=== PATIENT | female | born 1995 | race Caucasian/White ===

== ENCOUNTER → 2017-10-22 | Outpatient (CLI) | payer OTHER | END | disposition home or self-care (01) | LOC: LABWHC1 13:11 | PROVIDERS: ATTEND Obstetrics & Gynecology | DX: Z34.90 Encounter for supervision of normal pregnancy, unspecified, unspecified trimester (principal) | CPT/HCPCS: 36415; 84702 ==

== ENCOUNTER → 2017-11-02 | Outpatient (CLI) | payer OTHER ==
--- NOTE | 2017-11-02 15:28 | US ---
EXAMINATION TYPE: US pelvic complete DATE OF EXAM: 11/02/2017 COMPARISON: NONE CLINICAL HISTORY: N91.2 Amenorrhea, IUD in place Z97.5. IUD placed 2 years ago. No pain. No periods . TECHNIQUE: Transabdominal (TA) Date of LMP: Unknown due to IUD, EXAM MEASUREMENTS: Uterus: 10.5 x 4.5 x 3.5 cm Endometrial Stripe: 0.4 cm Right Ovary: 3.5 x 2.1 x 1.8 cm Left Ovary: 3.2 x 2.0 x 1.9 cm 1. Uterus: Anteverted wnl 2. Endometrium: IUD seen in endometrial canal 3. Right Ovary: follicles seen 4. Left Ovary: follicles seen 5. Bilateral Adnexa: wnl 6. Posterior cul-de-sac: no free fluid Cervix- wnl IMPRESSION: No significant finding is seen to account for patient's symptoms. Central IUD felt satisf actory in position.
== END | disposition home or self-care (01) ==
LOC: RADUSWWP 14:35
PROVIDERS: ATTEND Obstetrics & Gynecology
DX: N91.2 Amenorrhea, unspecified (principal); Z97.5 Presence of (intrauterine) contraceptive device
CPT/HCPCS: 76856

== ENCOUNTER 2018-06-22 22:02 | Observation (INO) | payer OTHER ==
[2018-06-22] MEDS ORDERED: ONDANSETRON 4 MG/2 ML VIAL IVP STA (23:19)
[2018-06-22] MEDS ORDERED: MORPHINE SULFATE 4 MG/ML SYRINGE IVP STA (23:19)
--- NOTE | 2018-06-22 23:39 | ED ---
Skin/Abscess/FB HPI <Joaquim Mota - Last Filed: 06/23/18 04:17> - General Source: patient Mode of arrival: ambulatory Limitations: no limitations <Sonia Wagner - Last Filed: 06/23/18 05:02> - General Chief complaint: Skin/Abscess/Foreign Body Stated complaint: tailbone pain Time Seen by Provider: 06/22/18 23:10 - History of Present Illness Initial comments: 22-year-old female patient presents to the emergency department today for evaluation of pain and drainage from her tailbone region. Patient states that she had a fall on Wednesday injuring her coccyx. The patient states that she did have x-ray imaging which showed a fracture. Patient states over the next couple days she developed swelling to the area and did call her physician reporting this. He informed her that this was normal and gave her prescription for naproxen for inflammation. Patient states that today the area broke open and drained a large amount of odorous sick fluid. Patient states that she is having significant amount of pain to the area. She states that she does feel chilled and feverish. She denies any nausea or vomiting. Denies any history of similar symptoms. Patient denies any recent rash, shortness breath, chest pain, abdominal pain, nausea, vomiting, diarrhea, constipation, back pain, numbness, tingling, dizziness, weakness, hematuria, dysuria, urinary urgency, urinary frequency, headache, visual changes, or any other complaints. (Sonia Wagner) - Related Data Home Medications Medication Instructions Recorded Confirmed Ibuprofen 600 mg PO Q4H PRN 06/22/18 06/22/18 Multivitamins, Thera [Multivitamin 1 tab PO DAILY 06/22/18 06/22/18 (formulary)] Naproxen 500 mg PO Q4H PRN 06/22/18 06/22/18 Allergies Allergy/AdvReac Type Severity Reaction Status Date / Time No Known Allergies Allergy Verified 06/22/18 23:05 Review of Systems ROS Other: All systems not noted in ROS Statement are negative. <Joaquim Mota - Last Filed: 06/23/18 04:17> ROS Other: All systems not noted in ROS Statement are negative. <Sonia Wagner - Last Filed: 06/23/18 05:02> ROS Statement: Those systems with pertinent positive or pertinent negative responses have been documented in the HPI. Past Medical History Past Medical History: No Reported History History of Any Multi-Drug Resistant Organisms: None Reported Past Surgical History: No Surgical Hx Reported Past Psychological History: Anxiety, Depression Smoking Status: Never smoker Past Alcohol Use History: Occasional Past Drug Use History: None Reported <Sonia Wagner - Last Filed: 06/23/18 05:02> General Exam Limitations: no limitations General appearance: alert, in no apparent distress, other (Physical well- developed, well-nourished adult female patient in mild distress related to pain. Vital signs upon presentation are temperature 99.2F, pulse 125, respirations 18, blood pressure 146/87, pulse ox 98% on room air.) Eye exam: Present: normal appearance, PERRL, EOMI. Absent: scleral icterus, conjunctival injection, periorbital swelling ENT exam: Present: normal exam, normal oropharynx, mucous membranes moist Respiratory exam: Present: normal lung sounds bilaterally. Absent: respiratory distress, wheezes, rales, rhonchi, stridor Cardiovascular Exam: Present: regular rate, normal rhythm, normal heart sounds. Absent: systolic murmur, diastolic murmur, rubs, gallop, clicks GI/Abdominal exam: Present: soft, normal bowel sounds. Absent: distended, tenderness, guarding, rebound, rigid Neurological exam: Present: alert, oriented X3, CN II-XII intact Psychiatric exam: Present: normal affect, normal mood Skin exam: Present: warm, dry, intact, normal color, other (Patient has large pilonidal abscess with large amount of purulent odorous drainage. Tenderness to the area. Surrounding erythema. ). Absent: rash <Sonia Wagner - Last Filed: 06/23/18 05:02> Vital Signs 06/22/18 06/23/18 06/23/18 22:30 02:24 04:44 Temperature 99.2 F 100.7 F H 99.2 F Pulse Rate 125 H 103 H 97 Respiratory 18 18 18 Rate Blood Pressure 146/87 155/80 131/61 O2 Sat by Pulse 98 98 99 Oximetry Medical Decision Making - Lab Data Result diagrams: 06/22/18 23:40 06/22/18 23:40 <Joaquim Mota - Last Filed: 06/23/18 04:17> - Lab Data Result diagrams: 06/22/18 23:40 06/22/18 23:40 <Sonia Wagner - Last Filed: 06/23/18 05:02> - Medical Decision Making I saw this patient in conjunction with the physician assistant basketball coach. I performed independent history and physical exam. Agree with case management. I discussed case with Dr. Nazario who will admit the patient (Joaquim Mota) 22-year-old female patient presented to the emergency department today for evaluation of pain and drainage from her coccyx region. Physical examination did reveal a large pilonidal abscess currently draining odorous purulent drainage. Patient labs were obtained and showed elevated white blood cell count of 14.5. Patient did have elevated temperature here in the department. She is on clindamycin. My attending Dr. Mota did speak to the surgeon process control technician Dr. Nazario who accepts admission. Patient be nothing by mouth midnight. (Sonia Wagner) - Lab Data Lab Results 06/22/18 06/22/18 06/22/18 Range/Units 23:40 23:40 23:40 WBC 14.3 H (3.8-10.6) k/uL RBC 4.57 (3.80-5.40) m/uL Hgb 12.9 (11.4-16.0) gm/dL Hct 38.4 (34.0-46.0) % MCV 84.0 (80.0-100.0) fL MCH 28.3 (25.0-35.0) pg MCHC 33.7 (31.0-37.0) g/dL RDW 12.0 (11.5-15.5) % Plt Count 476 H (150-450) k/uL Neutrophils % 74 % Lymphocytes % 17 % Monocytes % 6 % Eosinophils % 1 % Basophils % 1 % Neutrophils # 10.6 H (1.3-7.7) k/uL Lymphocytes # 2.4 (1.0-4.8) k/uL Monocytes # 0.9 (0-1.0) k/uL Eosinophils # 0.1 (0-0.7) k/uL Basophils # 0.1 (0-0.2) k/uL Sodium 140 (137-145) mmol/L Potassium 4.0 (3.5-5.1) mmol/L Chloride 104 (98-107) mmol/L Carbon Dioxide 25 (22-30) mmol/L Anion Gap 11 mmol/L BUN 14 (7-17) mg/dL Creatinine 0.80 (0.52-1.04) mg/dL Est GFR (CKD-EPI)AfAm >90 (>60 ml/min/1.73 sqM) Est GFR (CKD-EPI)NonAf >90 (>60 ml/min/1.73 sqM) Glucose 112 H (74-99) mg/dL Plasma Lactic Acid Gary 1.7 (0.7-2.0) mmol/L Calcium 9.0 (8.4-10.2) mg/dL Total Bilirubin 0.3 (0.2-1.3) mg/dL AST 22 (14-36) U/L ALT 20 (9-52) U/L Alkaline Phosphatase 101 (38-126) U/L Total Protein 7.7 (6.3-8.2) g/dL Albumin 3.6 (3.5-5.0) g/dL Disposition <Joaquim Mota - Last Filed: 06/23/18 04:17> Decision to Admit Reason: Admit from EC Decision Date: 06/23/18 Decision Time: 05:02 <Sonia Wagner - Last Filed: 06/23/18 05:02> Clinical Impression: Pilonidal abscess Disposition: ADMITTED IP TO THIS [facility] Condition: Fair
[2018-06-23 00:17] LABS: Basophils # (A) 0.1 k/uL (0-0.2); Basophils % (A) 1 %; Eosinophils # (A) 0.1 k/uL (0-0.7); Eosinophils % (A) 1 %; HCT 38.4 % (34.0-46.0); HGB 12.9 gm/dL (11.4-16.0); Lymphocytes # (A) 2.4 k/uL (1.0-4.8); Lymphocytes % (A) 17 %; MCH 28.3 pg (25.0-35.0); MCHC 33.7 g/dL (31.0-37.0); Mean Platelet Volume 6.7; Monocytes # (A) 0.9 k/uL (0-1.0); Monocytes % (A) 6 %; Neutrophils # (A) 10.6 k/uL (1.3-7.7); Neutrophils % (A) 74 %; Platelet Count 476 k/uL (150-450); RBC 4.57 m/uL (3.80-5.40); WBC 14.3 k/uL (3.8-10.6)
[2018-06-23 00:37] LABS: ALT 20 U/L (9-52); AST 22 U/L (14-36); Albumin 3.6 g/dL (3.5-5.0); Alkaline Phosphatase 101 U/L (38-126); Anion Gap 11 mmol/L; Blood Urea Nitrogen 14 mg/dL (7-17); Carbon Dioxide 25 mmol/L (22-30); Chloride 104 mmol/L (98-107); Glucose 112 mg/dL (74-99); Sodium 140 mmol/L (137-145); Total Bilirubin 0.3 mg/dL (0.2-1.3); Total Protein 7.7 g/dL (6.3-8.2)
[2018-06-23] MEDS ORDERED: CLINDAMYCIN 600 MG in DEXTROSE 5% IN WATER 50 ML IVPB STA ×2 (02:56)
[2018-06-23] MEDS ORDERED: ACETAMINOPHEN TAB 325 MG TAB PO PRN (04:13)
[2018-06-23] MEDS ORDERED: NALOXONE 0.4 MG/ML 1 ML VIAL IV PRN (04:13)
[2018-06-23] MEDS: SODIUM CHLORIDE 0.9% 1,000 ML IV SCH ×4 (04:47→20:43)
[2018-06-23 05:36] VITALS: BMI 51.1
[2018-06-23] MEDS ORDERED: VANCOMYCIN IV PER PHARMACY 1 EACH MISC MISCELLANE PRN (06:42)
[2018-06-23] MEDS: MORPHINE SULFATE 4 MG/ML SYRINGE IV PRN ×4 (07:02→22:07)
[2018-06-23] MEDS: ONDANSETRON 4 MG/2 ML VIAL IVP PRN ×2 (07:06→15:48)
[2018-06-23] MEDS ORDERED: VANCOMYCIN 2,500 MG in SODIUM CHLORIDE 0.9% 500 ML 500 ML IVPB ONE (08:00)
[2018-06-23] MEDS ORDERED: CLINDAMYCIN 300 MG in DEXTROSE 5% IN WATER 50 ML IVPB SCH ×2 (08:00)
--- NOTE | 2018-06-23 10:24 | CT ---
EXAMINATION TYPE: CT pelvis w con DATE OF EXAM: 06/23/2018 COMPARISON: None HISTORY: pilonidal cyst CT DLP: 2835.3 mGycm Automated exposure control for dose reduction was used. TECHNIQUE: Helical acquisition of images from the lung bases through the pelvis have been completed. CONTRAST: Performed without Oral Contrast and with IV Contrast, patient injected with 100 mL of Isovue 300. FINDINGS: Within the subcutaneous fat at the level just superficial to the distal sacrum and coccyx t here is lucency within the soft tissues with associated soft tissue density compatible with local inf lammatory change, possible gas forming organisms and phlegmon measuring approximately 2.5 x 4.7 by 6 cm as it extends from the level of the distal sacrum and coccyx to the skin surface. LUNG BASES: No significant abnormality is appreciated. AORTA: No significant abnormality is appreciated. LIVER/GB: No significant abnormality is appreciated. PANCREAS: No significant abnormality is seen. SPLEEN: No significant abnormality is seen. ADRENALS: No significant abnormality is seen. KIDNEYS: Poorly defined low dense area within the right kidney measures approximately 2.4 cm at the u pper pole posteriorly, correlate for possible pyelonephritis.. REPRODUCTIVE ORGANS: Intrauterine contraceptive device is in place. BOWEL: No significant abnormality is seen. FREE AIR: No Free Air visible. ASCITES: None visible. PELVIC ADENOPATHY: None visualized. RETROPERITONEAL ADENOPATHY: No Retroperitoneal Adenopathy visible. URINARY BLADDER: No significant abnormality is seen. OSSEOUS STRUCTURES: No significant abnormality is seen. No periosteal reaction to suggest osteomyeli tis. IMPRESSION: FINDINGS COMPATIBLE WITH SOFT TISSUE ABSCESS SUPERFICIAL TO THE DISTAL SACRUM AND COCCYX DESCRIBED , NO SIGNIFICANT FLUID NOTED, CONSIDER SURGICAL CONSULT, INCISION AND DRAINAGE. Abnormality in the ri ght kidney as described, correlate to exclude infection, pyelonephritis.
--- NOTE | 2018-06-23 10:52 | P.GSHP ---
<My Prater - Last Filed: 06/23/18 13:51> History of Present Illness H&P Date: 06/23/18 Chief Complaint: Pain coccyx. Pleasant 22-year-old female presented on the day of admission to the emergency room to be evaluated for pain in the coccyx area with a large amount of odorous serous fluid. Patient reports that she had fallen on Wednesday landed on her coccyx. Had pain and did have an x-ray done according to the patient she was told there was a fracture. Patient stated several days after the incident noted that there was increased pain to the coccyx area. She stated that the area actually opened up noted that she was experiencing a large amount of odorous serous fluid from the area. Was very painful to even touch the area. Patient stated that she felt feverish and chilled. Nausea sensation did not actually vomit. Denied any change in bowel habits. States urinating without difficulty. States the pain to touch to the area is unbearable. No past surgical history. Patient did have a computed tomography scan of the pelvis with contrast on June 23 reviewing the report the subcutaneous fat at the level to superior to the distal sacral and coccyx area large inflammatory changes possible gas-forming organisms approximately 2.5 x 4 x 7 by 6 abscess extends from the distal sacral coccyx to the skin surface the findings are compatible with soft tissue abscess superficial to the distal sacrum and coccyx white count on admission 14.3 electrolytes within normal limits in the emergency room temp was 100.7 patient was tachycardic Patient has a large tender swollen pilonidal abscess, currently large amount very odorous drainage noted significant tenderness to the area with surrounding erythema difficult to do an adequate exam patient states it's so sore to touch - Review of Systems Comment: Essentially unremarkable except as mentioned in the present illness Past Medical History Past Medical History: No Reported History History of Any Multi-Drug Resistant Organisms: None Reported Past Surgical History: No Surgical Hx Reported Past Psychological History: Anxiety, Depression Smoking Status: Never smoker Past Alcohol Use History: Occasional Past Drug Use History: None Reported - Past Family History Mother Family Medical History: No Reported History Father Family Medical History: Hypertension Medications and Allergies Home Medications Medication Instructions Recorded Confirmed Type Ibuprofen 600 mg PO Q4H PRN 06/22/18 06/22/18 History Multivitamins, Thera [Multivitamin 1 tab PO DAILY 06/22/18 06/22/18 History (formulary)] Naproxen 500 mg PO Q4H PRN 06/22/18 06/22/18 History Allergies Allergy/AdvReac Type Severity Reaction Status Date / Time No Known Allergies Allergy Verified 06/22/18 23:05 Surgical - Exam Vital Signs Temp Pulse Resp BP Pulse Ox 99.2 F 125 H 18 146/87 98 06/22/18 22:30 06/22/18 22:30 06/22/18 22:30 06/22/18 22:30 06/22/18 22:30 GENERAL APPEARANCE: 22-year-old female patient is alert, reports having significant tenderness to the sacrum and coccyx area VITAL SIGNS: Reviewed HEENT: Head is normocephalic and atraumatic. Pupils are equal and reactive. The nares are patent. Oropharynx is clear without lesions. NECK: Supple without lymphadenopathy. Traches midline. HEART: S1, S2. Regular rate and rhythm. No murmur noted denying chest pain LUNGS: No crackles or wheezes are heard. Good air movement bilaterally ABDOMEN: Soft, nontender, nondistended with good bowel sounds. No peritoneal signs. No palpable organomegaly or masses. EXTREMITIES: Normal skin color and turgor. No cyanosis, rash, ulceration, clubbing or edema. Radial pedal pulses are 2/4 bilaterally. NEUROLOGICAL: No focal deficits. Strength and sensation are grossly intact. Skin no skin rash noted. There is a large pilonidal abscess with a large amount odorous drainage extremely tender to the touch currently copious amount of yellowish creamy drainage extremely tender very swollen with redness noted Results - Labs 06/22/18 23:40 06/22/18 23:40 Abnormal Lab Results - Last 24 Hours (Table) 06/22/18 06/22/18 Range/Units 23:40 23:40 WBC 14.3 H (3.8-10.6) k/uL Plt Count 476 H (150-450) k/uL Neutrophils # 10.6 H (1.3-7.7) k/uL Glucose 112 H (74-99) mg/dL Diabetes panel 06/22/18 Range/Units 23:40 Sodium 140 (137-145) mmol/L Potassium 4.0 (3.5-5.1) mmol/L Chloride 104 (98-107) mmol/L Carbon Dioxide 25 (22-30) mmol/L BUN 14 (7-17) mg/dL Creatinine 0.80 (0.52-1.04) mg/dL Glucose 112 H (74-99) mg/dL Calcium 9.0 (8.4-10.2) mg/dL AST 22 (14-36) U/L ALT 20 (9-52) U/L Alkaline Phosphatase 101 (38-126) U/L Total Protein 7.7 (6.3-8.2) g/dL Albumin 3.6 (3.5-5.0) g/dL Calcium panel 06/22/18 Range/Units 23:40 Calcium 9.0 (8.4-10.2) mg/dL Albumin 3.6 (3.5-5.0) g/dL Pituitary panel 06/22/18 Range/Units 23:40 Sodium 140 (137-145) mmol/L Potassium 4.0 (3.5-5.1) mmol/L Chloride 104 (98-107) mmol/L Carbon Dioxide 25 (22-30) mmol/L BUN 14 (7-17) mg/dL Creatinine 0.80 (0.52-1.04) mg/dL Glucose 112 H (74-99) mg/dL Calcium 9.0 (8.4-10.2) mg/dL Adrenal panel 06/22/18 Range/Units 23:40 Sodium 140 (137-145) mmol/L Potassium 4.0 (3.5-5.1) mmol/L Chloride 104 (98-107) mmol/L Carbon Dioxide 25 (22-30) mmol/L BUN 14 (7-17) mg/dL Creatinine 0.80 (0.52-1.04) mg/dL Glucose 112 H (74-99) mg/dL Calcium 9.0 (8.4-10.2) mg/dL Total Bilirubin 0.3 (0.2-1.3) mg/dL AST 22 (14-36) U/L ALT 20 (9-52) U/L Alkaline Phosphatase 101 (38-126) U/L Total Protein 7.7 (6.3-8.2) g/dL Albumin 3.6 (3.5-5.0) g/dL Assessment and Plan Assessment: Impression A recent fall with pain to the coccyx area Present on admission a large pilonidal abscess draining odorous. Drainage Present on admission leukocytosis, febrile, tachycardic sepsis suspect due to large pilonidal abscess computed tomography scan of the pelvis on the june report reviewed findings compatible with soft tissue abscess superficial to the distal sacrum and coccyx Plan incision and drainage of pilonidal cyst scheduled for tomorrow IV antibiotics clindamycin and vancomycin as ordered Pain control DVT and GI prophylaxis IV fluid for hydration Further recommendations pending Repeat labs in the morning Nothing by mouth after midnight Resume diet The above impression and plan of care have been discussed and directed by signing physician. My Prater nurse practitioner acting as scribe for signing physician. <Donna Nazario - Last Filed: 06/23/18 17:03> Surgical - Exam Vital Signs Temp Pulse Resp BP Pulse Ox 99.2 F 125 H 18 146/87 98 06/22/18 22:30 06/22/18 22:30 06/22/18 22:30 06/22/18 22:30 06/22/18 22:30 Results - Labs 06/22/18 23:40 06/22/18 23:40 Abnormal Lab Results - Last 24 Hours (Table) 06/22/18 06/22/18 Range/Units 23:40 23:40 WBC 14.3 H (3.8-10.6) k/uL Plt Count 476 H (150-450) k/uL Neutrophils # 10.6 H (1.3-7.7) k/uL Glucose 112 H (74-99) mg/dL Microbiology - Last 24 Hours (Table) 06/22/18 23:45 Gram Stain - Preliminary Buttock Wound Culture - Preliminary Diabetes panel 06/22/18 Range/Units 23:40 Sodium 140 (137-145) mmol/L Potassium 4.0 (3.5-5.1) mmol/L Chloride 104 (98-107) mmol/L Carbon Dioxide 25 (22-30) mmol/L BUN 14 (7-17) mg/dL Creatinine 0.80 (0.52-1.04) mg/dL Glucose 112 H (74-99) mg/dL Calcium 9.0 (8.4-10.2) mg/dL AST 22 (14-36) U/L ALT 20 (9-52) U/L Alkaline Phosphatase 101 (38-126) U/L Total Protein 7.7 (6.3-8.2) g/dL Albumin 3.6 (3.5-5.0) g/dL Calcium panel 06/22/18 Range/Units 23:40 Calcium 9.0 (8.4-10.2) mg/dL Albumin 3.6 (3.5-5.0) g/dL Pituitary panel 06/22/18 Range/Units 23:40 Sodium 140 (137-145) mmol/L Potassium 4.0 (3.5-5.1) mmol/L Chloride 104 (98-107) mmol/L Carbon Dioxide 25 (22-30) mmol/L BUN 14 (7-17) mg/dL Creatinine 0.80 (0.52-1.04) mg/dL Glucose 112 H (74-99) mg/dL Calcium 9.0 (8.4-10.2) mg/dL Adrenal panel 06/22/18 Range/Units 23:40 Sodium 140 (137-145) mmol/L Potassium 4.0 (3.5-5.1) mmol/L Chloride 104 (98-107) mmol/L Carbon Dioxide 25 (22-30) mmol/L BUN 14 (7-17) mg/dL Creatinine 0.80 (0.52-1.04) mg/dL Glucose 112 H (74-99) mg/dL Calcium 9.0 (8.4-10.2) mg/dL Total Bilirubin 0.3 (0.2-1.3) mg/dL AST 22 (14-36) U/L ALT 20 (9-52) U/L Alkaline Phosphatase 101 (38-126) U/L Total Protein 7.7 (6.3-8.2) g/dL Albumin 3.6 (3.5-5.0) g/dL
[2018-06-23] MEDS: CLINDAMYCIN 600 MG in DEXTROSE 5% IN WATER 50 ML IVPB SCH ×4 (13:32→22:08)
[2018-06-23] MEDS: VANCOMYCIN 2,000 MG in SODIUM CHLORIDE 0.9% 500 ML 500 ML IVPB SCH (20:43)
[2018-06-24] MEDS: MORPHINE SULFATE 4 MG/ML SYRINGE IV PRN ×4 (02:25→23:08)
[2018-06-24] MEDS: ONDANSETRON 4 MG/2 ML VIAL IVP PRN ×2 (02:28→18:48)
[2018-06-24] MEDS: CLINDAMYCIN 600 MG in DEXTROSE 5% IN WATER 50 ML IVPB SCH ×6 (03:58→23:09)
[2018-06-24] MEDS: VANCOMYCIN 2,000 MG in SODIUM CHLORIDE 0.9% 500 ML 500 ML IVPB SCH ×2 (06:11→22:12)
[2018-06-24] MEDS: SODIUM CHLORIDE 0.9% 1,000 ML IV SCH ×3 (06:16→22:14)
--- NOTE | 2018-06-24 08:34 | P.PN ---
Progress Note - Text Progress Note Date: 06/24/18 Incision and drainage delayed due to limited OR availability. Case deferred for tomorrow.
[2018-06-24] MEDS ORDERED: IV FLUID CONTINUATION 700 ML IV ONE (17:14)
[2018-06-24] MEDS ORDERED: MIDAZOLAM 2 MG/2 ML VIAL IV ONE (18:48)
[2018-06-24] MEDS ORDERED: PROPOFOL 10 MG/ML 20 ML VIAL IV ONE (18:51)
[2018-06-24] MEDS ORDERED: SUCCINYLCHOLINE CHLORIDE VIAL 200 MG/10 ML VIAL IV ONE (18:51)
[2018-06-24] MEDS ORDERED: MIDAZOLAM 2 MG/2 ML VIAL ONE (18:51)
[2018-06-24] MEDS ORDERED: fentaNYL (PF) 50 MCG/ML 2 ML AMP ONE (18:51)
[2018-06-24] MEDS ORDERED: LIDOCAINE 1% INJ 10MG/ML (20 ML MDV) ONE (18:51)
[2018-06-24] MEDS ORDERED: HYDROmorphone (PF) 1 MG/ML ONE (18:51)
[2018-06-24] MEDS ORDERED: BUPIVACAIN-EPI 0.25%-1:200,000 30 ML VIAL SQ ONE (19:14)
[2018-06-24] MEDS ORDERED: MEPERIDINE 50 MG/ML SYRINGE IVP ONE ×2 (19:48→20:01)
[2018-06-24] MEDS ORDERED: HYDROmorphone 1 MG/ML 1 ML SYRINGE IVP ONE ×2 (20:16→20:25)
--- NOTE | 2018-06-24 20:29 | P.OP ---
Date of Procedure: 06/24/18 Description of Procedure: SURGEON: CHANEL DOS SANTOS MD SAMPLER TESTER: NONE. PREOPERATIVE DIAGNOSES: 1. Pilonidal abscess with sepsis 2. Morbid obesity due to excess calories, BMI 51.2 3. Generalized anxiety disorder 4. Depressive disorder 5. History of status post fall onto coccyx with fracture, sequelae POSTOPERATIVE DIAGNOSES: 1. Necrotizing pilonidal abscess with sepsis 2. Morbid obesity due to excess calories, BMI 51.2 3. Generalized anxiety disorder 4. Depressive disorder 5. History of status post fall onto coccyx with fracture, sequelae OPERATION: 1. Sharp excisional debridement with scissor of 6 x 4 x 4 cm coccygeal wound to muscle 2. Water pulse lavage debridement of coccygeal wound 6 x 4 x 4 cm to muscle and bone. ANESTHESIA: General with local ESTIMATED BLOOD LOSS: 30 mL. COMPLICATIONS: None. SPECIMENS: Tissue culture INDICATIONS: The patient is a 22-year-old female who reports a history of fall onto her coccyx. She then had a secondary infection which had developed into a severe swelling and moderate drainage. She presented septic to the emergency room with high fevers, high white count including tachycardia. CT demonstrated a complicated pilonidal cyst and abscess. Given the clinical findings, surgical debridement was described. Informed consent was obtained. DESCRIPTION: Patient was brought to the operating room, initially placed supine. After general induction, she was repositioned in the prone position. The patient was also on schedule antibiotics. The buttocks and sacrococcygeal area were prepped and draped in a standard sterile fashion using Betadine. After a timeout protocol, attention was brought to the depth of the wound whereby moderate necrosis with brown to yellow tissue exudate and slough was found along the surface of the coccygeal wound. The wound was measured to a depth of 4 cm with dimension of 6 x 4 cm with undermining and skin bridge along the midline. Using a sharp excisional debridement with a Metzenbaum scissors, the tissue was excised to healthy bleeding tissue to the the muscle. At the coccyx, the bone was not exposed. Next using a combination of Metzenbaum scissor, the periphery of the wound was also cleared of any fibrinous deposits. Bleeding was checked with electro Bovie cautery. One liter of water jet pulse lavage was performed along the wound for mechanically debridement followed by a 4 x 4 sponge. All yellow exudate was addressed. Using a moist Kerlix roll, the wound was packed. An ABD x 3 were placed along the wound. Six-inch micropore tape was placed to secure the dressing. She was awoken and taken to the postanesthesia care unit in stable condition. FINDINGS: 1. An 6 x 4 x 4 cm sacrococcygeal complicated pilonidal abscess
[2018-06-24] MEDS ORDERED: KETOROLAC 30 MG/ML 1 ML VIAL IVP ONE (20:31)
[2018-06-24] MEDS: FAMOTIDINE 20 MG TAB PO SCH (23:09)
[2018-06-25] MEDS: KETOROLAC 30 MG/ML 1 ML VIAL IVP SCH ×5 (00:38→18:22)
[2018-06-25] MEDS: MORPHINE SULFATE 4 MG/ML SYRINGE IV PRN ×4 (05:38→20:33)
[2018-06-25 07:42] LABS: Basophils % (A) 1 %; Eosinophils # (A) 0.4 k/uL (0-0.7); Eosinophils % (A) 5 %; HCT 37.1 % (34.0-46.0); HGB 11.8 gm/dL (11.4-16.0); Lymphocytes % (A) 28 %; MCH 27.2 pg (25.0-35.0); MCHC 31.9 g/dL (31.0-37.0); MCV 85.3 fL (80.0-100.0); Mean Platelet Volume 6.4; Monocytes # (A) 0.4 k/uL (0-1.0); Monocytes % (A) 6 %; Neutrophils # (A) 4.1 k/uL (1.3-7.7); Neutrophils % (A) 59 %; Platelet Count 451 k/uL (150-450); RBC 4.35 m/uL (3.80-5.40); RDW 11.9 % (11.5-15.5)
[2018-06-25 07:59] LABS: Anion Gap 7 mmol/L; Blood Urea Nitrogen 8 mg/dL (7-17); Calcium 8.2 mg/dL (8.4-10.2); Carbon Dioxide 28 mmol/L (22-30); Chloride 106 mmol/L (98-107); Glucose 91 mg/dL (74-99); Potassium 4.6 mmol/L (3.5-5.1); Sodium 141 mmol/L (137-145)
[2018-06-25] MEDS: HYDROcodone/APAP 5-325MG 1 EACH TAB PO PRN ×3 (08:13→19:11)
[2018-06-25] MEDS: CLINDAMYCIN 600 MG in DEXTROSE 5% IN WATER 50 ML IVPB SCH ×4 (08:14→15:24)
[2018-06-25] MEDS: SODIUM CHLORIDE 0.9% 1,000 ML IV SCH ×3 (08:15→18:34)
[2018-06-25] MEDS: ENOXAPARIN 40 MG/0.4 ML SYRINGE SQ SCH (09:24)
[2018-06-25] MEDS: FAMOTIDINE 20 MG TAB PO SCH ×2 (09:24→22:53)
[2018-06-25] MEDS: VANCOMYCIN 2,000 MG in SODIUM CHLORIDE 0.9% 500 ML 500 ML IVPB SCH ×2 (11:02→21:56)
--- NOTE | 2018-06-25 12:46 | P.PN ---
Subjective Progress Note Date: 06/25/18 CHIEF COMPLAINT: Complicated sacrococcygeal wound/pilonidal abscess HISTORY OF PRESENT ILLNESS: The patient is a 22-year-old female who comes in with unusual history of complicated pineal abscess resulting in a large ulceration requiring surgical debridement yesterday. Wound is equivalent to stage III pressure ulcer. Clinically, her pain is moderately improved since surgery. She has been afebrile. Leukocytosis including sepsis resolved since surgery and antibiotics. PHYSICAL EXAM: VITAL SIGNS: Currently stable. GENERAL: Well-developed in no acute distress. HEENT: No sclera icterus. Extraocular movements grossly intact. Moist buccal mucosa. Head is atraumatic, normocephalic. Hears conversational speech. No nasal drainage. NECK: Supple without lymphadenopathy. CHEST: Non-labored respirations and equal bilateral excursions. CARDIOVASCULAR: Regular rate with regular rhythm. ABDOMEN: Protuberant. No peritonitis. Tenderness along right lower quadrant, improved since admission. MUSCULOSKELETAL: No clubbing, cyanosis or edema. NEUROLOGIC: No focal or lateralizing signs. Cranial nerves II through XII grossly intact. PSYCH: Alert and oriented to person, place and time. SKIN: Drainage serosanguineous of the sacrococcygeal area. Dressing intact LABS: Reviewed ASSESSMENT: 1. Complicated pilonidal abscess with subsequent sacrococcygeal ulcer stage III with sepsis PLAN: 1. Patient reports moderate improvement of perineal pain and sacrococcygeal pain following debridement. 2. Patient has unusual presentation of large crater and ulceration. 3. Recommend home healthcare including infectious disease evaluation for antibiotic management and wound evaluation. 4. Full inpatient hospitalization advised given complexity of wound care including presentation for sepsis. 5. Disposition to home 2-3 days pending antibiotic management and wound care resources Objective - Vital Signs Vital signs: Vital Signs Temp 98.2 F 06/25/18 08:33 Pulse 77 06/25/18 08:33 Resp 16 06/25/18 09:00 BP 109/70 06/25/18 08:33 Pulse Ox 93 L 06/25/18 08:33 Intake & Output 06/24/18 06/25/18 06/25/18 18:59 06:59 18:59 Intake Total 1300 150 480 Output Total 1030 600 Balance 1300 -880 -120 Intake: IV 500 150 Intake, IV Titration 800 Amount Sodium Chloride 0.9% 1, 800 000 ml @ 150 mls/hr IV . Q6H40M [facility], [facility] Rx#:[id number] Oral 480 Output: Urine 1000 600 Estimated Blood Loss 30 Other: Voiding Method Toilet # Voids 2 - Labs CBC & Chem 7: 06/25/18 07:15 06/25/18 07:15 Labs: Abnormal Lab Results - Last 24 Hours (Table) 06/25/18 06/25/18 Range/Units 07:15 07:15 Plt Count 451 H (150-450) k/uL Calcium 8.2 L (8.4-10.2) mg/dL Microbiology - Last 24 Hours (Table) 06/22/18 23:45 Gram Stain - Final Buttock Wound Culture - Final 06/24/18 19:27 Gram Stain - Preliminary Buttock Wound Culture - Preliminary 06/24/18 19:27 Anaerobic Culture - Preliminary Buttock 06/22/18 23:40 Blood Culture - Preliminary Blood No Growth after 48 hours
[2018-06-25] MEDS: MULTIVITAMINS, THERA 1 EACH TAB PO SCH (18:34)
[2018-06-25] MEDS: PIPERACILLIN-TAZOBACTAM 3.375 GM in DEXTROSE/WATER 1 50ML.BAG IVPB SCH (18:40)
--- NOTE | 2018-06-25 22:56 | P.CONS ---
History of Present Illness - Reason for Consult Consult date: 06/25/18 - Chief Complaint Fall with pain - History of Present Illness 22-year-old female who has a history of obesity relates that she was letting her dog out and see slipped on the steps resulting in trauma to her coccyx area. The following days and became more and more discomforting and developed an area that was swollen and painful. The area then spontaneous open his started to drain a somewhat foul smelling material and she sought care. She has been seen by general surgery and because of the evidence of abscess at that site the patient was taken to the operating room for an incision and drainage. A computed tomography scan of the area was performed with evidence of abscess, possible phlegmon, with no evidence of fracture to the underlying bony structure the patient thought may have occurred. The patient is now postoperative and quite uncomfortable wound care was requested as well as antimicrobial therapy. Review of Systems 22-year-old female continues to have severe pain coccyx HEENT:Denies headache or acute visual change. Denies sinus or mouth discomforts. Denies neck stiffness or pain. Denies significant oral cavity pain. Denies difficulty on swallowing. Lungs: Denies significant shortness of breath, cough, sputum production, or hemoptysis. Cardiovascular: Denies significant shortness of breath, chest pain, chest wall pain, orthopnea, dyspnea on exertion, syncope Gastrointestinal: Nausea and dry heaves have resolved denies abdominal pain Musculoskeletal: denies significant myalgias or arthralgias. No new joint swelling. Denies new back pain. Skin: Denies new rash or lesions. Neuro: Denies headache or visual change. Denies any new onset weakness or difficulty with ambulation. Denies falls or seizures. Psychiatric:Denies anxiety or depression. Endocrine: Denies significant fatigue, denies significant weight loss or weight gain. Past Medical History Past Medical History: No Reported History History of Any Multi-Drug Resistant Organisms: None Reported Past Surgical History: No Surgical Hx Reported Past Psychological History: Anxiety, Depression Additional Psychological History / Comment(s): Single has a fianc. 8-year-old child the care of her grandmother while she is sick. No tobacco use. No drug use. No experience. 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 smoker Past Alcohol Use History: Occasional Past Drug Use History: None Reported - Past Family History Mother Family Medical History: No Reported History Father Family Medical History: Hypertension Medications and Allergies Home Medications and Allergies Comment(s): Current Medications Acetaminophen (Tylenol Tab) 650 mg PO Q6HR PRN PRN Reason: Mild Pain or Fever > 100.5 Hydrocodone Bitart/Acetaminophen ([place] 5-325) 1 each PO Q4HR PRN PRN Reason: Mild Pain Last Admin: 06/25/18 19:11 Dose: 1 each Enoxaparin Sodium (Lovenox) 40 mg SQ DAILY [facility] Last Admin: 06/25/18 09:24 Dose: 40 mg Famotidine (Pepcid) 20 mg PO BID [facility] Last Admin: 06/25/18 09:24 Dose: 20 mg Sodium Chloride (Saline 0.9%) 1,000 mls @ 150 mls/hr IV .Q6H40M [facility] Last Admin: 06/25/18 18:34 Dose: 150 mls/hr Vancomycin HCl 2,000 mg/ (Sodium Chloride) 500 mls @ 167 mls/hr IVPB Q12H [facility] Last Admin: 06/25/18 21:56 Dose: 167 mls/hr Piperacillin/Tazobactam/ (Dextrose 3.375 gm/ IV Solution) 50 mls @ 12.5 mls/hr IVPB Q8HR [facility] Last Admin: 06/25/18 18:40 Dose: 12.5 mls/hr Ketorolac Tromethamine (Toradol) 30 mg IVP Q6HR [facility] Stop: 06/26/18 12:01 Last Admin: 06/25/18 18:22 Dose: 30 mg Morphine Sulfate (Morphine Sulfate (Inj)) 4 mg IV Q4HR PRN PRN Reason: Severe Pain Last Admin: 06/25/18 20:33 Dose: 4 mg Multivitamins (Theragran) 1 each PO DAILY@1200 [facility] Last Admin: 06/25/18 18:34 Dose: 1 each Naloxone HCl (Narcan) 0.2 mg IV Q2M PRN PRN Reason: Opioid Reversal Ondansetron HCl (Zofran) 4 mg IVP Q8HR PRN PRN Reason: Nausea And Vomiting Last Admin: 06/24/18 18:48 Dose: 4 mg Home Medications Medication Instructions Recorded Confirmed Type Ibuprofen 600 mg PO Q4H PRN 06/22/18 06/22/18 History Multivitamins, Thera [Multivitamin 1 tab PO DAILY 06/22/18 06/22/18 History (formulary)] Naproxen 500 mg PO Q4H PRN 06/22/18 06/22/18 History Allergies Allergy/AdvReac Type Severity Reaction Status Date / Time No Known Allergies Allergy Verified 06/22/18 23:05 Physical Exam Vitals: Vital Signs Temp Pulse Resp BP Pulse Ox 06/25/18 20:38 97.3 F L 71 18 121/60 96 06/25/18 16:00 76 06/25/18 15:37 98.4 F 71 18 115/71 96 06/25/18 13:55 98 F 70 16 102/58 95 06/25/18 09:00 16 06/25/18 08:33 98.2 F 77 16 109/70 93 L 06/25/18 05:41 98.1 F 78 18 127/78 95 06/25/18 00:35 73 119/76 95 06/25/18 00:00 92 16 06/24/18 23:35 68 121/75 95 06/24/18 23:05 92 16 118/73 94 L 06/24/18 22:35 68 113/71 91 L Intake and Output 06/25/18 06/25/18 06/25/18 06:59 14:59 22:59 Intake Total 960 Output Total 1000 600 Balance -1000 360 Intake: Oral 960 Output: Urine 1000 600 Other: Voiding Method Toilet Toilet # Voids 1 Pleasant 22-year-old woman with superobesity very uncomfortable HEENT: Anicteric conjunctiva are pink and moist nasal mucosa grossly intact without significant lesions, there is no thrush. Neck: The neck is supple without significant lymphadenopathy or thyromegaly. Lungs: Good bilateral air entry without significant crackles or wheezing. There is no significant bronchial sounds. There is no egophony or dullness. Heart: Regular rate and rhythm with an audible S1-S2, no S3 no S4. There is no significant murmur click or rub, PMI was nondisplaced. Abdomen: Positive bowel sounds soft and nontender without palpable masses or organomegaly. There was no guarding or rebound. Extremities: The upper extremities have excellent pulses they are symmetric, no significant petechiae or telangiectasia. No splinter hemorrhages were noted. The lower extremities are free from significant edema. The peripheral pulses were 2+ and symmetric. Skin with the nurse present the coccyx area is evaluated with a surgical debridement has occurred. Surgical packing is still in place. Patient is given 4 mg of morphine and the packing is removed. Very painful to the patient. However excellently granulating tissue was seen no further purulence is seen. Neuro: Awake alert oriented to person place and time. There are no acute new gross focal sensory motor deficits. Results CBC & Chem 7: 06/25/18 07:15 06/25/18 07:15 Labs: Abnormal Lab Results - Last 24 Hours (Table) 06/25/18 06/25/18 Range/Units 07: 07:15 Plt Count 451 H (150-450) k/uL Calcium 8.2 L (8.4-10.2) mg/dL Microbiology - Last 24 Hours (Table) 06/24/18 19:27 Gram Stain - Preliminary Buttock Wound Culture - Preliminary 06/22/18 23:45 Gram Stain - Final Buttock Wound Culture - Final 06/24/18 19:27 Anaerobic Culture - Preliminary Buttock 06/22/18 23:40 Blood Culture - Preliminary Blood No Growth after 48 hours Laboratory Results WBC 7.0 k/uL (3.8-10.6) 06/25/18 07:15 RBC 4.35 m/uL (3.80-5.40) 06/25/18 07:15 Hgb 11.8 gm/dL (11.4-16.0) 06/25/18 07:15 Hct 37.1 % (34.0-46.0) 06/25/18 07:15 MCV 85.3 fL (80.0-100.0) 06/25/18 07:15 MCH 27.2 pg (25.0-35.0) 06/25/18 07:15 MCHC 31.9 g/dL (31.0-37.0) 06/25/18 07:15 RDW 11.9 % (11.5-15.5) 06/25/18 07:15 Plt Count 451 k/uL (150-450) H 06/25/18 07:15 Neutrophils % 59 % 06/25/18 07:15 Lymphocytes % 28 % 06/25/18 07:15 Monocytes % 6 % 06/25/18 07:15 Eosinophils % 5 % 06/25/18 07:15 Basophils % 1 % 06/25/18 07:15 Neutrophils # 4.1 k/uL (1.3-7.7) 06/25/18 07:15 Lymphocytes # 2.0 k/uL (1.0-4.8) 06/25/18 07:15 Monocytes # 0.4 k/uL (0-1.0) 06/25/18 07:15 Eosinophils # 0.4 k/uL (0-0.7) 06/25/18 07:15 Basophils # 0.0 k/uL (0-0.2) 06/25/18 07:15 Sodium 141 mmol/L (137-145) 06/25/18 07:15 Potassium 4.6 mmol/L (3.5-5.1) 06/25/18 07:15 Chloride 106 mmol/L (98-107) 06/25/18 07:15 Carbon Dioxide 28 mmol/L (22-30) 06/25/18 07:15 Anion Gap 7 mmol/L 06/25/18 07:15 BUN 8 mg/dL (7-17) 06/25/18 07:15 Creatinine 0.68 mg/dL (0.52-1.04) 06/25/18 07:15 Est GFR (CKD-EPI)AfAm >90 (>60 ml/min/1.73 sqM) 06/25/18 07:15 Est GFR (CKD-EPI)NonAf >90 (>60 ml/min/1.73 sqM) 06/25/18 07:15 Glucose 91 mg/dL (74-99) 06/25/18 07:15 Plasma Lactic Acid Gary 1.7 mmol/L (0.7-2.0) 06/22/18 23:40 Calcium 8.2 mg/dL (8.4-10.2) L 06/25/18 07:15 Total Bilirubin 0.3 mg/dL (0.2-1.3) 06/22/18 23:40 AST 22 U/L (14-36) 06/22/18 23:40 ALT 20 U/L (9-52) 06/22/18 23:40 Alkaline Phosphatase 101 U/L (38-126) 06/22/18 23:40 Total Protein 7.7 g/dL (6.3-8.2) 06/22/18 23:40 Albumin 3.6 g/dL (3.5-5.0) 06/22/18 23:40 Urine HCG, Qual Not Detected (Not Detectd) 06/23/18 10:05 Microbiology 06/24/18 19:27 Buttock Gram Stain - Preliminary 06/24/18 19:27 Buttock Wound Culture - Preliminary 06/22/18 23:45 Buttock Gram Stain - Final 06/22/18 23:45 Buttock Wound Culture - Final 06/24/18 19:27 Buttock Anaerobic Culture - Preliminary 06/22/18 23:40 Blood Blood Culture - Preliminary No Growth after 48 hours Assessment and Plan (1) Pilonidal abscess Narrative/Plan: 22-year-old female superobesity presents to Hospital status post fall where she injured her coccyx and steps when she slipped and fell. Developed some absence that area. She's been seen by the general surgeon and incision and drainage the site has occurred. Computed tomography scan was performed without evidence of fracture. At the time of surgery there is no notation of any deeper bony involvement. The abscesses have been incised and drained and she is showing some improvement. Cultures are pending and will continue the Zosyn and vancomycin until culture results are available. Leukocytosis is noted directly related to the abscess. She is not having high- grade fever but 100.7 fever is noted also related to the abscess area. Aquacel silver as requested for local wound care and cultures will determine the course of antibiotic therapy at the time of discharge and will likely require ongoing wound care after discharge hopefully home care can be arranged. Current Visit: Yes Status: Acute Code(s): L05.01 - PILONIDAL CYST WITH ABSCESS SNOMED Code(s): 44826208
[2018-06-26] MEDS: PIPERACILLIN-TAZOBACTAM 3.375 GM in DEXTROSE/WATER 1 50ML.BAG IVPB SCH ×4 (01:15→23:30)
[2018-06-26] MEDS: MORPHINE SULFATE 4 MG/ML SYRINGE IV PRN ×4 (01:15→20:18)
[2018-06-26] MEDS: KETOROLAC 30 MG/ML 1 ML VIAL IVP SCH ×3 (01:16→12:44)
[2018-06-26] MEDS: SODIUM CHLORIDE 0.9% 1,000 ML IV SCH ×4 (05:07→19:28)
[2018-06-26] MEDS: ENOXAPARIN 40 MG/0.4 ML SYRINGE SQ SCH (08:44)
[2018-06-26] MEDS: FAMOTIDINE 20 MG TAB PO SCH ×2 (08:44→20:19)
[2018-06-26] MEDS: VANCOMYCIN 2,000 MG in SODIUM CHLORIDE 0.9% 500 ML 500 ML IVPB SCH ×2 (10:01→20:19)
[2018-06-26] MEDS: ONDANSETRON 4 MG/2 ML VIAL IVP PRN (11:28)
[2018-06-26] MEDS: MULTIVITAMINS, THERA 1 EACH TAB PO SCH (12:44)
--- NOTE | 2018-06-26 13:18 | P.PN ---
Subjective Progress Note Date: 06/26/18 CHIEF COMPLAINT: Complicated sacrococcygeal wound/pilonidal abscess HISTORY OF PRESENT ILLNESS: The patient is a 22-year-old female who comes in with unusual history of complicated pineal abscess resulting in a large ulceration requiring surgical debridement. She still reports appropriate soreness along the pilonidal area. Additionally, she has been seen by infectious disease with adjustment of antibiotics. Given the large size of the wound, she will need home health care. PHYSICAL EXAM: VITAL SIGNS: Currently stable. GENERAL: Well-developed in no acute distress. HEENT: No sclera icterus. Extraocular movements grossly intact. Moist buccal mucosa. Head is atraumatic, normocephalic. Hears conversational speech. No nasal drainage. NECK: Supple without lymphadenopathy. CHEST: Non-labored respirations and equal bilateral excursions. CARDIOVASCULAR: Regular rate with regular rhythm. ABDOMEN: Soft, nontender, nondistended MUSCULOSKELETAL: No clubbing, cyanosis or edema. NEUROLOGIC: No focal or lateralizing signs. Cranial nerves II through XII grossly intact. PSYCH: Alert and oriented to person, place and time. SKIN: Chest and intact. No purulent drainage. LABS: Reviewed ASSESSMENT: 1. Complicated pilonidal abscess with subsequent sacrococcygeal ulcer stage III with sepsis PLAN: 1. Her leukocytosis is resolved. 2. Antibiotics adjusted by infectious disease. 3. Cultures have been finalized. 4. Discharge home tomorrow with home health care including antibiotic course per infectious disease Objective - Vital Signs Vital signs: Vital Signs Temp 98 F 06/26/18 12:59 Pulse 65 06/26/18 12:59 Resp 16 06/26/18 12:59 BP 117/76 06/26/18 12:59 Pulse Ox 94 L 06/26/18 12:59 Intake & Output 06/25/18 06/26/18 06/26/18 18:59 06:59 18:59 Intake Total 960 Output Total 600 Balance 360 Intake: Oral 960 Output: Urine 600 Other: Voiding Method Toilet # Voids 1 - Labs CBC & Chem 7: 06/25/18 07:15 06/25/18 07:15 Labs: Microbiology - Last 24 Hours (Table) 06/22/18 23:40 Blood Culture - Preliminary Blood No Growth after 72 hours 06/24/18 19:27 Gram Stain - Preliminary Buttock Wound Culture - Preliminary 06/22/18 23:45 Gram Stain - Final Buttock Wound Culture - Final Assessment and Plan (1) Morbid obesity with BMI of 50.0-59.9, adult Current Visit: Yes Status: Acute Code(s): E66.01 - MORBID (SEVERE) OBESITY DUE TO EXCESS CALORIES; Z68.43 - BODY MASS INDEX (BMI) 50-59.9, ADULT SNOMED Code(s): 235228555 (2) Coccygeal pain Current Visit: Yes Status: Acute Code(s): M53.3 - SACROCOCCYGEAL DISORDERS, NOT ELSEWHERE CLASSIFIED SNOMED Code(s): 75730506 (3) Coccygeal fistula Current Visit: Yes Status: Acute Code(s): L05.92 - PILONIDAL SINUS WITHOUT ABSCESS SNOMED Code(s): 638421964 (4) Coccygeal pain, acute Current Visit: Yes Status: Acute Code(s): M53.3 - SACROCOCCYGEAL DISORDERS, NOT ELSEWHERE CLASSIFIED SNOMED Code(s): 19506952 (5) Pilonidal abscess Current Visit: Yes Status: Acute Code(s): L05.01 - PILONIDAL CYST WITH ABSCESS SNOMED Code(s): 51966541
[2018-06-27] MEDS: MORPHINE SULFATE 4 MG/ML SYRINGE IV PRN (01:44)
[2018-06-27] MEDS: SODIUM CHLORIDE 0.9% 1,000 ML IV SCH ×2 (01:48→08:34)
[2018-06-27] MEDS: HYDROcodone/APAP 5-325MG 1 EACH TAB PO PRN (08:26)
[2018-06-27] MEDS: FAMOTIDINE 20 MG TAB PO SCH (08:26)
[2018-06-27] MEDS: VANCOMYCIN 2,000 MG in SODIUM CHLORIDE 0.9% 500 ML 500 ML IVPB SCH (08:27)
[2018-06-27] MEDS: PIPERACILLIN-TAZOBACTAM 3.375 GM in DEXTROSE/WATER 1 50ML.BAG IVPB SCH (08:27)
[2018-06-27] MEDS: ENOXAPARIN 40 MG/0.4 ML SYRINGE SQ SCH (08:27)
[2018-06-27 09:14] VITALS: RESP 16
[2018-06-27] MEDS: MULTIVITAMINS, THERA 1 EACH TAB PO SCH (11:43)
--- NOTE | 2018-06-27 12:09 | P.DS ---
Providers Date of admission: 06/23/18 04:17 Expected date of discharge: 06/27/18 Attending physician: Donna Nazario Consults: 06/25/18 10:42 Consult Physician Routine Consulting Provider: Willy Garcia Consult Reason/Comments: complicated pilonidal cyst, stage 3 coccygeal ulcer Do you want consulting provider notified?: Yes Primary care physician: [facility] Course: 22-year-old female presented to the emergency room to be evaluated for chief complaint of developing pain in the coccyx area with a large amount of serous odorous drainage. Patient reportedly is on on Wednesday prior to the incident. States she landed on coccyx. Had pain did go to the emergency room x-ray was done told that was a fracture. Several days after developed increased pain in the coccyx area. Had a CAT scan done upon returning to the emergency room June 23 reviewing the report indicated there was an abscess in the distal sacral coccyx area. Findings were compatible with soft tissue abscess on admission patient had a large swollen pilondial abscess On June 24 patient did undergo Sharp excisional debridement with scissor of 6 x 4 x 4 cm coccygeal wound to muscle with water pulse lavage debridement of the coccyx wound 6x4 cm to muscle and bone age was followed throughout the hospitalization by infectious disease with recommendations for antibiotic and wound care Impression discharge diagnosis Present on admission Pilonidal abscess with sepsis tachycardia, leukocytosis febrile Morbid obesity BMI 51 due to excess calories General anxiety depressive disorder History of a recent fall prior to admission landing on coccyx with the fracture History of status post fall onto coccyx with fracture, sequelae Necrotizing pilonidal abscess with sepsis Postop done on June 24 Sharp excisional debridement with scissor of 6 x 4 x 4 cm coccygeal wound to muscle Postop June 24 Water pulse lavage debridement of coccygeal wound 6 x 4 x 4 cm to muscle and bone. Patient Condition at Discharge: Fair Plan - Discharge Summary Discharge Rx Participant: Yes New Discharge Prescriptions: New Amoxic-Pot Clav 875-125Mg [Augmentin 875-125] 1 tab PO Q12HR #28 tablet HYDROcodone/APAP 5-325MG [[place] 5-325] 1 each PO Q4HR PRN #18 tab PRN Reason: Mild Pain Acetaminophen Tab [Tylenol] 650 mg PO Q6HR PRN tab PRN Reason: Mild Pain Or Fever > 100.5 Continue Naproxen 500 mg PO Q4H PRN PRN Reason: Pain Multivitamins, Thera [Multivitamin (formulary)] 1 tab PO DAILY Ibuprofen 600 mg PO Q4H PRN PRN Reason: Pain Discharge Medication List Ibuprofen 600 mg PO Q4H PRN 06/22/18 [History] Multivitamins, Thera [Multivitamin (formulary)] 1 tab PO DAILY 06/22/18 [History ] Naproxen 500 mg PO Q4H PRN 06/22/18 [History] Acetaminophen Tab [Tylenol] 650 mg PO Q6HR PRN tab 06/27/18 [Rx] Amoxic-Pot Clav 875-125Mg [Augmentin 875-125] 1 tab PO Q12HR #28 tablet [Rx] HYDROcodone/APAP 5-325MG [[place]ollywood 5-325] 1 each PO Q4HR PRN #18 tab 06/27/18 [Rx] Follow up Appointment(s)/Referral(s): Willy Garcia MD [STAFF PHYSICIAN] - 1 Week Donna Nazario MD [STAFF PHYSICIAN] - As Needed [facility], [NON-STAFF] - Rafael Chavez MD [Primary Care Provider] - 1-2 days Activity/Diet/Wound Care/Special Instructions: Continue regular diet, fluids encouraged. Continue antibiotic as prescribed by physician until gone. Eat yogurt or take a probiotic while on an antibiotic. Call physician with any questions comments or concern, worsening symptoms. Call for fever 101 or higher, not tolerating diet or fluids, excessive drainage from wound, pain that is uncontrolled by prescribed medications. Last dose given at 0826AM. Last dressing change was 06/26/18. Next dressing change will be on . Wound care: Pack wound daily with Kerlix roll 12-inches wet to dry after showering. Cover with ABD and 6-inch micropore tape. Discharge Disposition: HOME WITH HOME HEALTH SERVICES
[2018-06-27 13:06] VITALS: BP 139/76; PULSE 73; TEMP 98.5
== END 2018-06-27 13:12 | disposition home health service (06) ==
LOC: EC 22:02 → 6PED 06-23 04:17
PROVIDERS: ADMIT Surgery Plastic and Reconstructive Surgery; ATTEND Surgery Plastic and Reconstructive Surgery
DX: L05.01 Pilonidal cyst with abscess (principal); A41.9 Sepsis, unspecified organism; Z68.43 Body mass index [BMI] 50.0-59.9, adult; E66.01 Morbid (severe) obesity due to excess calories; F41.1 Generalized anxiety disorder; F32.9 Major depressive disorder, single episode, unspecified; L89.153 Pressure ulcer of sacral region, stage 3; Z82.49 Family history of ischemic heart disease and other diseases of the circulatory system; W01.0XXA Fall on same level from slipping, tripping and stumbling without subsequent striking against object, initial encounter; Y93.K9 Activity, other involving animal care
CPT/HCPCS: 11043; 11046; 99284; 96375 ×3; 96365 ×2; 96366 ×2; 96367; 96376 ×2; 36415; 81025 ×2; 88304; 80053; 80048; 83605; 85025 ×2; 80202; 87040; 87070 ×2; 87205 ×2; 87075; 72193; G0378 ×5; J2250; J3370 ×5; J0330; J2270 ×6; J2175; J2405 ×4; J2001; J1650 ×3; J3010; J1885 ×3; J1170; J2543 ×3; J2704

== ENCOUNTER → 2020-05-20 | Outpatient (CLI) | payer OTHER ==
--- NOTE | 2020-05-29 12:35 | EM ---
This is a 4 day event monitor. Patient rhythm is sinus. Patient had frequent PVCs without any sustained arrhythmias. Episodes of sinus tachycardia. Final impression #1. Sinus rhythm. #2 episodes of sinus tachycardia #3 occasional to frequent PVCs #4. Patient complained of symptoms which are nonspecific correlating with PVCs. MTDD
== END | disposition home or self-care (01) ==
LOC: RADECHMAIN 12:21
PROVIDERS: ATTEND Internal Medicine
DX: R00.2 Palpitations (principal)
CPT/HCPCS: 93270

== ENCOUNTER 2021-10-24 11:08 | Emergency (ER) | payer OTHER ==
--- NOTE | 2021-10-24 11:31 | ED ---
Arrhythmia/Palpitations HPI - General Chief Complaint: Arrhythmia/Palpitations Stated Complaint: High HR/BP Time Seen by Provider: 10/24/21 11:17 Source: patient Mode of arrival: ambulatory Limitations: no limitations - History of Present Illness Initial Comments: Patient's 26-year-old otherwise healthy female who presents with palpitations. She states that the palpitations started this morning she was at work. 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 Patient denies fever, chills, shortness of breath, chest pain, dizziness, and abdominal pain. Patient does state that she takes Wellbutrin and started her first dose of 5-HTP supplement this morning. Patient reports she is not anxious at this time. - Related Data Home Medications Medication Instructions Recorded Confirmed 5htp 1 tab PO DAILY 10/24/21 10/24/21 buPROPion HCL [Wellbutrin SR] 200 mg PO BID 10/24/21 10/24/21 Allergies Allergy/AdvReac Type Severity Reaction Status Date / Time No Known Allergies Allergy Verified 10/24/21 12:16 Review of Systems ROS Statement: Those systems with pertinent positive or pertinent negative responses have been documented in the HPI. ROS Other: All systems not noted in ROS Statement are negative. Past Medical History Past Medical History: No Reported History History of Any Multi-Drug Resistant Organisms: None Reported Past Surgical History: No Surgical Hx Reported Additional Past Surgical History / Comment(s): polynidal cyst removal Past Psychological History: Anxiety, Depression Smoking Status: Never smoker Past Alcohol Use History: Occasional Past Drug Use History: None Reported - Past Family History Mother Family Medical History: No Reported History Father Family Medical History: Hypertension General Exam Limitations: no limitations Course Vital Signs 10/24/21 10/24/21 10/24/21 11:12 11:30 12:46 Temperature 97.8 F 98.1 F Pulse Rate 113 H 105 H 98 Respiratory 18 12 18 Rate Blood Pressure 169/103 143/115 151/99 O2 Sat by Pulse 99 99 Oximetry EKG Findings - EKG Comments: EKG Findings:: EKG taken at 11:26. Sinus tachycardia, possible left atrial enlargement. Ventricular rate 104. TN interval 156. QRS duration 92. Cutaneous/QTC 346/454 Medical Decision Making - Medical Decision Making This is a 26-year-old female who presents to the emergency department with palpitations. EKG reveals sinus tachycardia. I did review her cardiac event monitor from May 2020 which reads sinus rhythm with occasional to frequent PVCs and discussed with patient. Results discussed with patient. She mentions that she is feeling the PVCs more often but does not have symptoms now. I ref erred her to Dr. Whipple further evaluation and treatment. Return parameters discussed. - Lab Data Result diagrams: 10/24/21 11:36 10/24/21 11:36 Lab Results 10/24/21 10/24/21 Range/Units 11:36 11:36 WBC 7.7 (3.8-10.6) k/uL RBC 5.07 (3.80-5.40) m/uL Hgb 14.7 (11.4-16.0) gm/dL Hct 43.8 (34.0-46.0) % MCV 86.3 (80.0-100.0) fL MCH 28.9 (25.0-35.0) pg MCHC 33.5 (31.0-37.0) g/dL RDW 12.0 (11.5-15.5) % Plt Count 424 (150-450) k/uL MPV 7.2 Neutrophils % 69 % Lymphocytes % 24 % Monocytes % 4 % Eosinophils % 1 % Basophils % 1 % Neutrophils # 5.3 (1.3-7.7) k/uL Lymphocytes # 1.9 (1.0-4.8) k/uL Monocytes # 0.3 (0-1.0) k/uL Eosinophils # 0.1 (0-0.7) k/uL Basophils # 0.1 (0-0.2) k/uL Sodium 140 (137-145) mmol/L Potassium 4.2 (3.5-5.1) mmol/L Chloride 107 (98-107) mmol/L Carbon Dioxide 25 (22-30) mmol/L Anion Gap 8 mmol/L BUN 12 (7-17) mg/dL Creatinine 0.87 (0.52-1.04) mg/dL Est GFR (CKD-EPI)AfAm >90 (>60 ml/min/1.73 sqM) Est GFR (CKD-EPI)NonAf >90 (>60 ml/min/1.73 sqM) Glucose 101 H (74-99) mg/dL Calcium 9.5 (8.4-10.2) mg/dL Total Bilirubin 0.5 (0.2-1.3) mg/dL AST 19 (14-36) U/L ALT 18 (4-34) U/L Alkaline Phosphatase 73 (38-126) U/L Total Protein 8.0 (6.3-8.2) g/dL Albumin 4.1 (3.5-5.0) g/dL Disposition Clinical Impression: Palpitations Disposition: HOME SELF-CARE Condition: Good Instructions (If sedation given, give patient instructions): Heart Palpitations (ED) Additional Instructions: Follow-up with wood barker in 1-2 days for further evaluation. Return to the emergency department if you experience new, concerning, or worsening symptoms. Is patient prescribed a controlled substance at d/c from ED?: No Referrals: Dylan Allen DO [Primary Care Provider] - 1-2 days Percy Whipple MD [STAFF PHYSICIAN] - 1-2 days Time of Disposition: 12:50
[2021-10-24 11:33] VITALS: TEMP 98.1
[2021-10-24 12:06] LABS: Basophils # (A) 0.1 k/uL (0-0.2); Basophils % (A) 1 %; Eosinophils # (A) 0.1 k/uL (0-0.7); Eosinophils % (A) 1 %; HCT 43.8 % (34.0-46.0); HGB 14.7 gm/dL (11.4-16.0); Lymphocytes # (A) 1.9 k/uL (1.0-4.8); Lymphocytes % (A) 24 %; MCH 28.9 pg (25.0-35.0); MCHC 33.5 g/dL (31.0-37.0); MCV 86.3 fL (80.0-100.0); Mean Platelet Volume 7.2; Monocytes # (A) 0.3 k/uL (0-1.0); Monocytes % (A) 4 %; Neutrophils # (A) 5.3 k/uL (1.3-7.7); Neutrophils % (A) 69 %; Platelet Count 424 k/uL (150-450); RBC 5.07 m/uL (3.80-5.40); WBC 7.7 k/uL (3.8-10.6)
[2021-10-24 12:18] LABS: ALT 18 U/L (4-34); AST 19 U/L (14-36); African American GFR (CKD) >90 (>60 ml/min/1.73 sqM); Albumin 4.1 g/dL (3.5-5.0); Alkaline Phosphatase 73 U/L (38-126); Anion Gap 8 mmol/L; Blood Urea Nitrogen 12 mg/dL (7-17); Calcium 9.5 mg/dL (8.4-10.2); Carbon Dioxide 25 mmol/L (22-30); Chloride 107 mmol/L (98-107); Glucose 101 mg/dL (74-99); Non-African American GFR(CKD) >90 (>60 ml/min/1.73 sqM); Potassium 4.2 mmol/L (3.5-5.1); Sodium 140 mmol/L (137-145); Total Bilirubin 0.5 mg/dL (0.2-1.3)
[2021-10-24 12:48] VITALS: BP 151/99; PULSE 98; RESP 18
== END 2021-10-24 13:10 | disposition home or self-care (01) ==
LOC: EC 11:08
DX: R00.2 Palpitations (principal); F41.9 Anxiety disorder, unspecified; F32.A Depression, unspecified
CPT/HCPCS: 36415; 80053; 85025; 93005; 99285

== ENCOUNTER 2023-07-26 15:19 | Emergency (ER) | payer OTHER ==
[2023-07-26 15:41] VITALS: TEMP 97.6
[2023-07-26 16:25] VITALS: RESP 16
--- NOTE | 2023-07-26 16:31 | ED ---
General Adult HPI - General Chief complaint: Headache Stated complaint: High BP Time Seen by Provider: 07/26/23 15:28 Source: patient, RN notes reviewed Mode of arrival: ambulatory Limitations: no limitations - History of Present Illness Initial comments: 28-year-old female with no significant past medical history presents to the emergency department the chief complaint of high blood pressure. Patient reports she had a slight headache and felt like her face was warm earlier today which prompted her to take her blood pressure. She reports getting readings 170s over 120s. She was advised to come to the nearest emergency department. Patient reports resolution of symptoms. She denies any headache, vision changes or vision loss, dizziness, lightheadedness, nausea, vomiting. - Related Data Home Medications Medication Instructions Recorded Confirmed 5htp 1 tab PO DAILY 10/24/21 10/24/21 buPROPion HCL [Wellbutrin SR] 200 mg PO BID 10/24/21 10/24/21 Previous Rx's Medication Instructions Recorded ALPRAZolam [Xanax] 0.25 mg PO TID PRN 3 Days #9 tab 07/26/23 Allergies Allergy/AdvReac Type Severity Reaction Status Date / Time No Known Allergies Allergy Verified 07/26/23 15:27 Review of Systems ROS Statement: Those systems with pertinent positive or pertinent negative responses have been documented in the HPI. ROS Other: All systems not noted in ROS Statement are negative. Past Medical History Past Medical History: No Reported History History of Any Multi-Drug Resistant Organisms: None Reported Past Surgical History: No Surgical Hx Reported Additional Past Surgical History / Comment(s): polynidal cyst removal Past Psychological History: Anxiety, Depression Smoking Status: Never smoker Past Alcohol Use History: Occasional Past Drug Use History: Marijuana - Past Family History Mother Family Medical History: No Reported History Father Family Medical History: Hypertension General Exam - General Exam Comments Initial Comments: General: Alert, in no acute distress Head: atraumatic normocephalic. Eyes PERRL, EOMI intact, mucous membranes moist Respiratory: Lungs clear to auscultation bilaterally Cardiovascular: Heart rate regular rate and rhythm Abdominal: Soft without guarding or rebound Extremities: Normal inspection with full range of motion and normal capillary refill Neuroogic: alert and oriented 3, CN II-XII intact, able to ambulate with steady gait Skin: warm dry and intact with normal color Limitations: no limitations Course Vital Signs 07/26/23 07/26/23 07/26/23 15:23 15:41 16:18 Temperature 97.6 F Pulse Rate 98 106 H 98 Respiratory 17 16 Rate Blood Pressure 147/88 149/103 145/95 O2 Sat by Pulse 100 99 Oximetry 07/26/23 07/26/23 16:42 17:42 Temperature Pulse Rate 96 89 Respiratory 16 Rate Blood Pressure 152/94 145/82 O2 Sat by Pulse 100 Oximetry - Reevaluation(s) Reevaluation #1: 07/26/23 16:59 He shouldn't reevaluated. Patient's blood pressure remains 140s over 90s. Reevaluation #2: 07/26/23 16:59 Should it evaluated. Patient reports no symptoms at this time. Patient okay with discharging small dose of Xanax. Reevaluation #3: 07/26/23 17:49 Patient reevaluated. Patient's blood pressure 140s over 80s. Agreeable with the plan for discharge home. EKG Findings - EKG Comments: EKG Findings:: I interpreted the following: EKG performed at 17:17. Rate 90 bpm normal sinus, AK interval 161, QRS confucianism 100, QT/QTc 352/399 Medical Decision Making - Medical Decision Making Was pt. sent in by a medical professional or institution ([facility] Fields, [employer], urgent care, hospital, or longterm...) When possible be specific @ -[No] Did you speak to anyone other than the patient for history (EMS, parent, family, police, friend...)? What history was obtained from this source @ -[No] Did you review nursing and triage notes (agree or disagree)? Why? @ -[I reviewed and agree with nursing and triage notes] Were old charts reviewed (outside hosp., previous admission, EMS record, old EKG, old radiological studies, urgent care reports/EKG's, longterm records)? Report findings @ -[No old charts were reviewed] Differential Diagnosis (chest pain, altered mental status, abdominal pain women, abdominal pain men, vaginal bleeding, weakness, fever, dyspnea, syncope, headache, dizziness, GI bleed, back pain, seizure, CVA, palpatations, mental health, musculoskeletal)? @ -[not applicable] EKG interpreted by me (3pts min.). @ -[As above] X-rays interpreted by me (1pt min.). @ -[None done] CT interpreted by me (1pt min.). @ -[None done] U/S interpreted by me (1pt. min.). @ -[None done] What testing was considered but not performed or refused? (CT, X-rays, U/S, labs)? Why? @ -[None] What meds were considered but not given or refused? Why? @ -[None] Did you discuss the management of the patient with other professionals (professionals i.e. DrCameron, PA, [employer], lab, RT, psych nurse, oncology social work, responder, teacher, juvenile corrections officer, case specialist)? Give summary @ -[No] Was smoking cessation discussed for >3mins.? @ -[No] Was critical care preformed (if so, how long)? @ -[No] Were there social determinants of health that impacted care today? How? (Homelessness, low income, unemployed, alcoholism, drug addiction, transportation, low edu. Level, literacy, decrease access to med. care, [facility], rehab)? @ -[No] Was there de-escalation of care discussed even if they declined (Discuss DNR or withdrawal of care, Hospice)? DNR status @ -[No] What co-morbidities impacted this encounter? (DM, HTN, Smoking, COPD, CAD, Cancer, CVA, ARF, Chemo, Hep., AIDS, mental health diagnosis, sleep apnea, morbid obesity)? @ -[None] Was patient admitted / discharged? Hospital course, mention meds given and route, prescriptions, significant lab abnormalities, going to OR and other pertinent info. @ -Discharged. This is a pleasant 28-year-old female presents the emergency department with high blood pressure. Patient had a thorough history and physical exam performed. Patient's heart rate regular rate and rhythm, lungs clear to auscultation bilaterally abdomen soft and non-tender. No focal neurologic deficits noted on exam. Patient able to move all extremities. Patient reevaluated multiple times. Patient denies any active symptoms while evaluated in the ED, blood pressure 140's/80's. Patient is agreeable with the plan for discharge home. I discussed results in detail with the patient verb alized understanding all questions were addressed. Patient provided prescription for Xanax and recommend close follow-up with PCP in 1-2 days. Return precautions were discussed. Patient discharged in stable condition. Discussed with SCHUYLER Cheng who agrees with plan of care Undiagnosed new problem with uncertain prognosis? @ -[No] Drug Therapy requiring intensive monitoring for toxicity (Heparin, Nitro, Insulin, Cardizem)? @ -[No] Were any procedures done? @ -[No] Diagnosis/symptom? @ - HTN - Anxiety Acute, or Chronic, or Acute on Chronic? @ -Acute Uncomplicated (without systemic symptoms) or Complicated (systemic symptoms)? @ -Uncomplicated Side effects of treatment? @ -[No] Exacerbation, Progression, or Severe Exacerbation? @ -[No] Poses a threat to life or bodily function? How? (Chest pain, [place], [place], pneumonia, PE, COPD, DKA, ARF, appy, cholecystitis, CVA, Diverticulitis, Homicidal, Suicidal, threat to staff... and all critical care pts) @ -Low likelihood Disposition Clinical Impression: HTN (hypertension), Anxiety Disposition: HOME SELF-CARE Condition: Stable Instructions (If sedation given, give patient instructions): Acute Headache (ED) Additional Instructions: Please return if worsening headache, dizziness, lightheadedness, vision changes or vision loss occur Is patient prescribed a controlled substance at d/c from ED?: No Referrals: Dylan Allen DO [Primary Care Provider] - 1-2 days Time of Disposition: 16:30
[2023-07-26] MEDS ORDERED: SODIUM CHLORIDE 0.9% 1,000 ML IV ONE (16:54)
[2023-07-26] MEDS ORDERED: ALPRAZolam 0.25 MG TAB PO STA (16:58)
[2023-07-26 17:52] VITALS: BP 145/82; PULSE 89
== END 2023-07-26 18:01 | disposition home or self-care (01) ==
LOC: EC 15:19
DX: I10 Essential (primary) hypertension (principal); F41.9 Anxiety disorder, unspecified; F12.90 Cannabis use, unspecified, uncomplicated; F32.A Depression, unspecified; Z79.899 Other long term (current) drug therapy
CPT/HCPCS: 93005; 99283